=== PATIENT | male | born 1955 | race African-American/Black ===

== ENCOUNTER 2018-09-04 10:17 | Inpatient (IN) | payer OTHER ==
[~2018-09-04] VITALS: Ht 182.9 cm; Wt 81.6 kg
[2018-09-04] MEDS ORDERED: SODIUM CHLORIDE 0.9% 1,000 ML IV ONE (10:50)
[2018-09-04] MEDS ORDERED: ONDANSETRON HCL 4MG/2ML INJ IV STA (10:50)
[2018-09-04] MEDS ORDERED: NITROGLYCERIN OINT 1GM/INCH UDPKT TD ONE (11:00)
[2018-09-04] MEDS ORDERED: ASPIRIN 325MG EC TABLET PO ONE (11:00)
[2018-09-04] MEDS ORDERED: MORPHINE SULFATE 10 MG/ML CPJ IV ONE (11:00)
[2018-09-04 11:18] LABS: BASOPHILS % 0.7 % (0.0-2.0); EOSINOPHILS % 2.3 % (0.0-5.0); HEMATOCRIT. 33.5 % (42.0-52.0); HEMOGLOBIN. 11.2 g/dL (14.0-18.0); LYMPHOCYTES % 17.2 % (20.0-50.0); MEAN CORPUSCULAR HEMOGLOBIN 35.1 pg (28.0-32.0); MEAN CORPUSCULAR VOLUME 104.9 fL (80.0-94.0); MEAN PLATELET VOLUME 7.5 fl (7.4-10.4); NEUTROPHILS % 69.8 % (40.0-76.0); PLATELET 239 x1000/uL (130-400); RED BLOOD CELL COUNT 3.19 mill/uL (4.7-6.1); RED CELL DISTRIBUTION WIDTH 14.4 % (11.6-14.6)
[2018-09-04 11:26] LABS: CHLORIDE 99 mEq/L (98-107); INR 1.3; PROTHROMBIN TIME 12.9 sec (9.1-11.1)
[2018-09-04] MEDS ORDERED: POTASSIUM CHLORIDE 20MEQ TABLET SR PO ONE (11:30)
[2018-09-04 11:32] LABS: ETHANOL BLOOD 23 mg/dL
[2018-09-04] MEDS ORDERED: SODIUM CHLORIDE 0.9% 1000ML BAG (SEPSIS BOLUS) IV ONE (11:45)
[2018-09-04] MEDS ORDERED: BISACODYL 10MG SUPP PR PRN (12:30)
[2018-09-04] MEDS ORDERED: ONDANSETRON HCL 4MG/2ML INJ IV PRN (12:30)
[2018-09-04] MEDS ORDERED: PIPERACILLIN/TAZ 3.375G PREMIX 50 ML IV ONE (13:15)
[2018-09-04] MEDS ORDERED: VANCOMYCIN 1 G PREMIX 200 ML IV ONE (13:15)
[2018-09-04 13:48] LABS: HEPATITIS B SURFACE ANTIGEN NEGATIVE
[2018-09-04 14:18] LABS: HEPATITIS A AB IGM NEGATIVE (NEGATIVE)
[2018-09-04 14:31] LABS: CLARITY URINE CLEAR (CLEAR); COLOR URINE YELLOW (YELLOW); KETONES URINE NEGATIVE (NEGATIVE); LEUKOCYTE ESTERASE URINE NEGATIVE (NEGATIVE); NITRITE URINE NEGATIVE (NEGATIVE); OCCULT BLOOD URINE NEGATIVE (NEGATIVE); PROTEIN URINE NEGATIVE (NEGATIVE); SPECIFIC GRAVITY URINE 1.027 (1.005-1.030)
[2018-09-04 15:41] VITALS: BP 100/60
[2018-09-04 15:44] VITALS: BP 100/60
[2018-09-04] MEDS ORDERED: ATOR40TA70 MT (15:58)
[2018-09-04] MEDS ORDERED: AMLO10TA80 MT (16:00)
[2018-09-04] MEDS ORDERED: LOSA50TA20 MT (16:00)
[2018-09-04] MEDS ORDERED: METF-816 MT (16:00)
[2018-09-04] MEDS ORDERED: HYDROMORPHONE HCL/PF 2MG/ML CPJ IV PRN (16:00)
[2018-09-04] MEDS ORDERED: DEXTROSE 50% WATER 50ML SYRINGE IV PRN (16:00)
[2018-09-04] MEDS: INSULIN LISPRO 100 UNITS/ML SUBCUT SCH ×2 (16:39→21:00)
[2018-09-04] MEDS: BLOOD SUGAR DIAGNOSTIC STRIP TEST SCH ×2 (16:39→21:58)
[2018-09-04] MEDS: SODIUM CHLORIDE 0.45% 1,000 ML IV SCH (16:40)
[2018-09-04] MEDS ORDERED: PNEUMOCOCCAL 23-VAL P-SAC VAC 0.5 ML IM ONE (18:00)
[2018-09-04] MEDS ORDERED: IOHEXOL-350 100 ML BOTTLE ONE (18:38)
[2018-09-05] VITALS: BP 104/68
[2018-09-05 04:00] VITALS: BP 105/62
[2018-09-05] MEDS: SODIUM CHLORIDE 0.45% 1,000 ML IV SCH (05:32)
[2018-09-05] MEDS: INSULIN LISPRO 100 UNITS/ML SUBCUT SCH ×2 (06:13→12:15)
[2018-09-05] MEDS: BLOOD SUGAR DIAGNOSTIC STRIP TEST SCH ×2 (06:13→12:40)
[2018-09-05 07:27] LABS: HEMATOCRIT. 27.9 % (42.0-52.0); HEMOGLOBIN. 9.5 g/dL (14.0-18.0); MEAN CORPUSCULAR HEMOGLOBIN 35.9 pg (28.0-32.0); MEAN PLATELET VOLUME 7.9 fl (7.4-10.4); PLATELET 207 x1000/uL (130-400); RED BLOOD CELL COUNT 2.66 mill/uL (4.7-6.1); RED CELL DISTRIBUTION WIDTH 14.1 % (11.6-14.6)
[2018-09-05 07:43] LABS: CHLORIDE 106 mEq/L (98-107)
[2018-09-05 08:00] VITALS: BP 109/70
[2018-09-05 12:00] VITALS: BP 110/77
[2018-09-05] MEDS ORDERED: OMEPRAZOLE 20MG CAPSULE EXTENDED RELEASE PO SCH (13:15)
[2018-09-05 16:00] VITALS: BP 105/76
[2018-09-05 16:28] VITALS: BP 105/76
[2018-09-05 17:51] LABS: TOTAL IRON BINDING CAPACITY 198 ug/dL (250-450)
[2018-09-05 19:01] LABS: VITAMIN B12 SERUM >2000 pg/mL pg/mL (211-911)
[2018-09-05 19:33] LABS: FERRITIN 5832 ng/mL (22-322)
[2018-09-06 14:04] LABS: PLATELET ESTIMATE NORMAL
== END 2018-09-05 17:15 | disposition home or self-care (01) | DRG 392 ==
LOC: ER 12:07 → 5WST 12:26 → EDBEDREQ 12:34 → EDBEDREQTM 12:34 → ENRESERV 13:49
PROVIDERS: ADMIT Internal Medicine; ATTEND Internal Medicine
DX: K29.20 Alcoholic gastritis without bleeding (principal); E87.1 Hypo-osmolality and hyponatremia; K52.9 Noninfective gastroenteritis and colitis, unspecified; D64.9 Anemia, unspecified; E87.6 Hypokalemia; K70.30 Alcoholic cirrhosis of liver without ascites; I10 Essential (primary) hypertension; E11.9 Type 2 diabetes mellitus without complications; E78.5 Hyperlipidemia, unspecified; F10.10 Alcohol abuse, uncomplicated; K21.9 Gastro-esophageal reflux disease without esophagitis; Z79.82 Long term (current) use of aspirin; K59.00 Constipation, unspecified; Z86.711 Personal history of pulmonary embolism; Z79.84 Long term (current) use of oral hypoglycemic drugs; Z79.899 Other long term (current) drug therapy
CPT/HCPCS: 36415; 71045; 71275; 74177; 76705; 78227; 80307; 82607; 82728; 82746; 82962; 83540; 83550; 83605; 83880; 84484; 85379; 86705; 86709; 86803; 87340; 90732; 93005; 93970; 96361; 96365; 99291; A9537; G0482; J2405; J2543; J3370; J7030; Q9967

== ENCOUNTER 2022-03-26 08:53 | Inpatient (IN) | payer OTHER ==
[~2022-03-26] VITALS: Ht 185.4 cm; Wt 72.6 kg
[~2022-03-26 08:53] MED LIST: AMLO10TA80 MT; ATOR40TA70 MT; LOSA50TA41 MT; METF-874 MT
[2022-03-26] MEDS ORDERED: ONDANSETRON HCL 4MG/2ML INJ IV STA (08:56)
[2022-03-26] MEDS ORDERED: SODIUM CHLORIDE 0.9% 1,000 ML IV ONE (09:00)
[2022-03-26] MEDS ORDERED: MAGNESIUM/ALUMINUM HYDROXIDE/SIMETHICONE 30ML UDC PO ONE (09:00)
[2022-03-26 09:31] LABS: BASOPHILS % 0.9 % (0.0-2.0); HEMATOCRIT. 38.4 % (42.0-52.0); LYMPHOCYTES % 14.3 % (20.0-50.0); MEAN CORPUSCULAR HEMOGLOBIN 36.2 pg (28.0-32.0); MEAN CORPUSCULAR VOLUME 106.5 fL (80.0-94.0); MEAN PLATELET VOLUME 8.1 fl (7.4-10.4); MONOCYTES % 12.4 % (2.0-8.0); NEUTROPHILS % 72.4 % (40.0-76.0); PLATELET 227 x1000/uL (130-400); RED BLOOD CELL COUNT 3.61 mill/uL (4.7-6.1); RED CELL DISTRIBUTION WIDTH 16.7 % (11.6-14.6)
[2022-03-26 09:45] LABS: CHLORIDE 96 mEq/L (98-107)
[2022-03-26 09:53] LABS: ETHANOL BLOOD < 10 mg/dL
[2022-03-26] MEDS ORDERED: MECLIZINE 25MG TABLET PO PRN (14:00)
[2022-03-26 17:32] VITALS: BP 147/90
[2022-03-26 20:00] VITALS: BP 142/90
[2022-03-26] MEDS: ACETAMINOPHEN 325MG TABLET PO PRN (20:42)
[2022-03-26] MEDS: ONDANSETRON HCL 4MG/2ML INJ IV PRN (20:42)
[2022-03-26] MEDS ORDERED: DEXTROSE 50% WATER 50ML SYRINGE IV PRN (22:00)
[2022-03-26] MEDS ORDERED: NALOXONE HCL 0.4MG/ML VIAL IV PRN (22:30)
[2022-03-26] MEDS: DEXT 5%/0.45% NACL KCL 20MEQ/L 1,000 ML IV SCH (23:43)
[2022-03-26] MEDS: PANTOPRAZOLE SODIUM 40 MG/VIAL IV SCH (23:43)
[2022-03-27] VITALS: BP 155/97
[2022-03-27] MEDS: MORPHINE SULFATE 2 MG/ML CPJ (NOT FOR IM USE) IV PRN ×2 (00:10→08:20)
[2022-03-27 00:54] LABS: BASOPHILS % 0.5 % (0.0-2.0); HEMATOCRIT. 35.4 % (42.0-52.0); HEMOGLOBIN. 11.7 g/dL (14.0-18.0); LYMPHOCYTES % 32.9 % (20.0-50.0); MEAN CORPUSCULAR HEMOGLOBIN 35.6 pg (28.0-32.0); MEAN CORPUSCULAR VOLUME 107.5 fL (80.0-94.0); MEAN PLATELET VOLUME 8.5 fl (7.4-10.4); MONOCYTES % 12.9 % (2.0-8.0); NEUTROPHILS % 53.7 % (40.0-76.0); PLATELET 188 x1000/uL (130-400); RED BLOOD CELL COUNT 3.29 mill/uL (4.7-6.1); RED CELL DISTRIBUTION WIDTH 16.4 % (11.6-14.6)
[2022-03-27 01:10] LABS: CHLORIDE 96 mEq/L (98-107)
[2022-03-27 04:00] VITALS: BP 138/90
[2022-03-27] MEDS: BLOOD SUGAR DIAGNOSTIC STRIP TEST SCH ×4 (06:47→21:00)
[2022-03-27] MEDS: INSULIN LISPRO 100 UNITS/ML SUBCUT SCH ×4 (07:33→21:00)
[2022-03-27 07:45] LABS: VITAMIN B12 SERUM 928 pg/mL (211-911)
[2022-03-27 08:00] VITALS: BP 135/84
[2022-03-27] MEDS: AMLODIPINE 10MG TABLET PO SCH (08:18)
[2022-03-27] MEDS: PANTOPRAZOLE SODIUM 40 MG/VIAL IV SCH (08:18)
[2022-03-27] MEDS: ONDANSETRON HCL 4MG/2ML INJ IV PRN (08:19)
[2022-03-27 12:00] VITALS: BP 128/76
[2022-03-27] MEDS: DEXT 5%/0.45% NACL KCL 20MEQ/L 1,000 ML IV SCH (12:42)
[2022-03-27 15:46] VITALS: BP 120/78
[2022-03-27 17:49] LABS: CLARITY URINE CLEAR (CLEAR); COLOR URINE DARK YELLOW (YELLOW); KETONES URINE 1+ (NEGATIVE); LEUKOCYTE ESTERASE URINE TRACE (NEGATIVE); NITRITE URINE NEGATIVE (NEGATIVE); OCCULT BLOOD URINE NEGATIVE (NEGATIVE); PH URINE 6.5 (4.5-8.0); PROTEIN URINE NEGATIVE (NEGATIVE); SPECIFIC GRAVITY URINE 1.015 (1.005-1.030)
[2022-03-27] MEDS: HYDROXYZINE 10 MG TABLET PO SCH (21:23)
[2022-03-27] MEDS: HYDROCODONE/ACETAMINOPHEN 5/325MG TABLET PO PRN (21:25)
[2022-03-28] MEDS: DEXT 5%/0.45% NACL KCL 20MEQ/L 1,000 ML IV SCH ×2 (00:33→13:18)
[2022-03-28] MEDS: HYDROCODONE/ACETAMINOPHEN 5/325MG TABLET PO PRN ×4 (02:25→17:37)
[2022-03-28] MEDS: BLOOD SUGAR DIAGNOSTIC STRIP TEST SCH ×4 (06:48→21:22)
[2022-03-28] MEDS: INSULIN LISPRO 100 UNITS/ML SUBCUT SCH ×4 (07:50→21:22)
[2022-03-28 08:00] VITALS: BP 123/79
[2022-03-28 09:06] LABS: *AMPHETAMINES SCREEN URINE NEGATIVE (NEGATIVE); *BARBITURATES SCREEN URINE NEGATIVE (NEGATIVE); *BENZODIAZEPINES SCREEN URINE NEGATIVE (NEGATIVE); *COCAINE SCREEN URINE NEGATIVE (NEGATIVE); CANNABINOID URINE SCREEN PRESUMTIVE POSITIVE (NEGATIVE); METHADONE URINE SCREEN NEGATIVE (NEGATIVE); OPIATES URINE SCREEN PRESUMTIVE POSITIVE (NEGATIVE); PHENCYCLIDINE URINE SCREEN NEGATIVE (NEGATIVE)
[2022-03-28] MEDS: PANTOPRAZOLE SODIUM 40 MG/VIAL IV SCH (10:11)
[2022-03-28] MEDS: AMLODIPINE 10MG TABLET PO SCH (10:11)
[2022-03-28 12:00] VITALS: BP 118/72
[2022-03-28 16:00] VITALS: BP 135/84
[2022-03-28 20:00] VITALS: BP 124/79
[2022-03-28] MEDS: HYDROXYZINE 10 MG TABLET PO SCH (21:22)
[2022-03-29 01:30] VITALS: BP 137/86
[2022-03-29] MEDS: DEXT 5%/0.45% NACL KCL 20MEQ/L 1,000 ML IV SCH ×2 (01:40→14:00)
[2022-03-29] MEDS: HYDROCODONE/ACETAMINOPHEN 5/325MG TABLET PO PRN ×3 (01:45→20:10)
[2022-03-29 05:00] VITALS: BP 133/87
[2022-03-29] MEDS: BLOOD SUGAR DIAGNOSTIC STRIP TEST SCH ×4 (06:00→21:00)
[2022-03-29] MEDS: INSULIN LISPRO 100 UNITS/ML SUBCUT SCH ×4 (06:01→21:00)
[2022-03-29 08:00] VITALS: BP 119/79
[2022-03-29] MEDS: AMLODIPINE 10MG TABLET PO SCH (08:37)
[2022-03-29] MEDS: PANTOPRAZOLE SODIUM 40 MG/VIAL IV SCH (08:37)
[2022-03-29] MEDS ORDERED: IOHEXOL-300 100 ML BOTTLE ONE (11:01)
[2022-03-29 12:00] VITALS: BP 124/75
[2022-03-29 12:30] LABS: CHLORIDE 100 mEq/L (98-107)
[2022-03-29] MEDS: LEVOFLOXACIN 500MG TABLET PO SCH (13:24)
[2022-03-29 16:00] VITALS: BP 114/79
[2022-03-29 20:00] VITALS: BP 127/103
[2022-03-29] MEDS: HYDROXYZINE 10 MG TABLET PO SCH (20:10)
[2022-03-29] MEDS: ONDANSETRON HCL 4MG/2ML INJ IV PRN (20:18)
[2022-03-30] VITALS: BP 121/76
[2022-03-30] MEDS: DEXT 5%/0.45% NACL KCL 20MEQ/L 1,000 ML IV SCH (02:30)
[2022-03-30 04:00] VITALS: BP 113/81
[2022-03-30] MEDS: ONDANSETRON HCL 4MG/2ML INJ IV PRN (06:13)
[2022-03-30] MEDS: HYDROCODONE/ACETAMINOPHEN 5/325MG TABLET PO PRN (06:13)
[2022-03-30] MEDS: BLOOD SUGAR DIAGNOSTIC STRIP TEST SCH ×2 (07:32→13:05)
[2022-03-30] MEDS: INSULIN LISPRO 100 UNITS/ML SUBCUT SCH ×2 (07:33→12:50)
[2022-03-30 08:00] VITALS: BP 120/82
[2022-03-30] MEDS: AMLODIPINE 10MG TABLET PO SCH (08:48)
[2022-03-30] MEDS: ACETAMINOPHEN 325MG TABLET PO PRN (08:49)
[2022-03-30] MEDS: PANTOPRAZOLE SODIUM 40 MG/VIAL IV SCH (08:49)
[2022-03-30] MEDS: LEVOFLOXACIN 500MG TABLET PO SCH (11:11)
[2022-03-30 15:20] VITALS: BP 115/67
[2022-03-30 16:00] VITALS: BP 115/67
[2022-03-31] MEDS ORDERED: FAMOTIDINE 20MG/2ML VIAL IV SCH (09:00)
== END 2022-03-30 16:42 | disposition home or self-care (01) | DRG 74 ==
LOC: ER 09:14 → 6EST 12:37 → ENRESERV 14:08
PROVIDERS: ADMIT Internal Medicine; ATTEND Internal Medicine
DX: G90.8 Other disorders of autonomic nervous system (principal); E87.1 Hypo-osmolality and hyponatremia; I16.0 Hypertensive urgency; E11.51 Type 2 diabetes mellitus with diabetic peripheral angiopathy without gangrene; D53.9 Nutritional anemia, unspecified; I10 Essential (primary) hypertension; K57.30 Diverticulosis of large intestine without perforation or abscess without bleeding; K76.0 Fatty (change of) liver, not elsewhere classified; E87.8 Other disorders of electrolyte and fluid balance, not elsewhere classified; E78.00 Pure hypercholesterolemia, unspecified; R20.2 Paresthesia of skin; R10.9 Unspecified abdominal pain; R11.2 Nausea with vomiting, unspecified; N32.89 Other specified disorders of bladder; R63.4 Abnormal weight loss; F17.290 Nicotine dependence, other tobacco product, uncomplicated; Z68.21 Body mass index [BMI] 21.0-21.9, adult; Z79.899 Other long term (current) drug therapy; Z86.718 Personal history of other venous thrombosis and embolism; Z86.711 Personal history of pulmonary embolism
CPT/HCPCS: 36415; 70551; 71045; 74177; 80048; 80053; 80076; 80305; 80320; 81003; 82533; 82607; 82962; 83036; 83880; 84146; 84443; 84484; 85025; 93005; 97116; 97161; 97162; 97530; 99285; C9113; J1815; J2270; J2405; J7030; Q9967; G0480

== ENCOUNTER 2022-05-11 07:47 | Inpatient (IN) | payer BC, MEDICARE, OTHER ==
[~2022-05-11] VITALS: Ht 177.8 cm; Wt 73.1 kg
[~2022-05-11 07:47] MED LIST changes: -LOSA50TA41 MT; +LOSA50TA41 PO
[2022-05-11] MEDS ORDERED: KETOROLAC 30MG/ML VIAL IV STA (09:08)
[2022-05-11] MEDS ORDERED: SODIUM CHLORIDE 0.9% 1,000 ML IV ONE (09:15)
[2022-05-11 10:46] LABS: BASOPHILS % 0.6 % (0.0-2.0); EOSINOPHILS % 1.1 % (0.0-5.0); HEMATOCRIT. 36.5 % (42.0-52.0); LYMPHOCYTES % 34.9 % (20.0-50.0); MEAN CORPUSCULAR HEMOGLOBIN 35.6 pg (28.0-32.0); MEAN CORPUSCULAR VOLUME 108.3 fL (80.0-94.0); MEAN PLATELET VOLUME 7.6 fl (7.4-10.4); MONOCYTES % 11.5 % (2.0-8.0); NEUTROPHILS % 51.9 % (40.0-76.0); PLATELET 353 x1000/uL (130-400); RED BLOOD CELL COUNT 3.37 mill/uL (4.7-6.1)
[2022-05-11 10:50] LABS: CHLORIDE 106 mEq/L (98-107)
[2022-05-11 12:52] LABS: CLARITY URINE CLEAR (CLEAR); COLOR URINE YELLOW (YELLOW); KETONES URINE TRACE (NEGATIVE); LEUKOCYTE ESTERASE URINE NEGATIVE (NEGATIVE); NITRITE URINE NEGATIVE (NEGATIVE); OCCULT BLOOD URINE NEGATIVE (NEGATIVE); PH URINE 5.5 (4.5-8.0); PROTEIN URINE NEGATIVE (NEGATIVE); SPECIFIC GRAVITY URINE 1.012 (1.005-1.030); UROBILINOGEN URINE 0.2 E.U./dL (0.2-1.0)
[2022-05-11] MEDS ORDERED: ACETAMINOPHEN 325MG TABLET PO PRN ×2 (15:00)
[2022-05-11] MEDS ORDERED: GUAIFENESIN 200MG/10ML SUGAR FREE UDC PO PRN (15:00)
[2022-05-11] MEDS ORDERED: MAGNESIUM/ALUMINUM HYDROXIDE/SIMETHICONE 30ML UDC PO PRN (15:00)
[2022-05-11] MEDS ORDERED: DOCUSATE SODIUM 100MG CAPSULE PO PRN (15:00)
[2022-05-11] MEDS ORDERED: ENOXAPARIN 40MG/0.4ML SYR SUBCUT SCH (15:00)
[2022-05-11] MEDS ORDERED: IPRATROPIUM/ALBUTEROL 0.5-3(2.5)MG/3ML NEB NEB PRN (15:00)
[2022-05-11] MEDS ORDERED: ONDANSETRON HCL 4MG/2ML INJ IV PRN (15:00)
[2022-05-11] MEDS ORDERED: NITROGLYCERIN 0.4MG TABLET SL SL PRN (15:00)
[2022-05-11] MEDS ORDERED: DEXTROSE 50% WATER 50ML SYRINGE IV PRN (15:15)
[2022-05-11] MEDS: KETOROLAC 15MG/ML VIAL IV PRN (15:43)
[2022-05-11 15:55] LABS: T4 FREE 0.97 ng/dL (0.76-1.46)
[2022-05-11 16:44] LABS: CORTISOL 11.9 ucg/dL
[2022-05-11 16:46] LABS: FOLIC ACID (FOLATE) SERUM 3.6 ng/mL (>5.38)
[2022-05-11] MEDS ORDERED: ASPI-1497 PO (17:48)
[2022-05-11] MEDS ORDERED: GABA-532 PO (17:50)
[2022-05-11] MEDS: BLOOD SUGAR DIAGNOSTIC STRIP TEST SCH ×2 (18:00→20:07)
[2022-05-11 18:23] VITALS: BP 148/101
[2022-05-11 20:00] VITALS: BP 147/81
[2022-05-11] MEDS ORDERED: FOLIC ACID 1 MG, THIAMINE HCL 100 MG, MVI, ADULT NO.1 10 ML in DEXTROSE 5% WATER 1,000 ML IV NR ×4 (20:00)
[2022-05-11] MEDS: INSULIN LISPRO 100 UNITS/ML SUBCUT SCH (20:07)
[2022-05-11] MEDS: FAMOTIDINE 20MG TABLET PO SCH (20:23)
[2022-05-11] MEDS: ATORVASTATIN CALCIUM 40MG TABLET PO SCH (20:24)
[2022-05-11] MEDS ORDERED: ZOLPIDEM TARTRATE 5MG TABLET PO PRN (21:00)
[2022-05-12] VITALS: BP 145/83
[2022-05-12 00:45] LABS: CREATINE KINASE MB FRACTION 1.5 ng/mL (0.5-3.6)
[2022-05-12] MEDS: KETOROLAC 15MG/ML VIAL IV PRN ×3 (02:59→22:07)
[2022-05-12 04:00] VITALS: BP 167/100
[2022-05-12] MEDS: CLONIDINE 0.1MG TABLET PO PRN (04:16)
[2022-05-12] MEDS: BLOOD SUGAR DIAGNOSTIC STRIP TEST SCH ×4 (06:37→21:00)
[2022-05-12] MEDS: INSULIN LISPRO 100 UNITS/ML SUBCUT SCH ×4 (06:37→21:00)
[2022-05-12 07:03] LABS: BASOPHILS % 0.6 % (0.0-2.0); EOSINOPHILS % 1.1 % (0.0-5.0); HEMATOCRIT. 32.7 % (42.0-52.0); HEMOGLOBIN. 11.2 g/dL (14.0-18.0); LYMPHOCYTES % 23.6 % (20.0-50.0); MEAN CORPUSCULAR VOLUME 108.5 fL (80.0-94.0); MONOCYTES % 14.5 % (2.0-8.0); NEUTROPHILS % 60.2 % (40.0-76.0); PLATELET 292 x1000/uL (130-400); RED BLOOD CELL COUNT 3.02 mill/uL (4.7-6.1)
[2022-05-12 07:03] LABS: *AMPHETAMINES SCREEN URINE NEGATIVE (NEGATIVE); *BARBITURATES SCREEN URINE NEGATIVE (NEGATIVE); *BENZODIAZEPINES SCREEN URINE NEGATIVE (NEGATIVE); *COCAINE SCREEN URINE NEGATIVE (NEGATIVE); CANNABINOID URINE SCREEN PRESUMTIVE POSITIVE (NEGATIVE); METHADONE URINE SCREEN NEGATIVE (NEGATIVE); OPIATES URINE SCREEN NEGATIVE (NEGATIVE); PHENCYCLIDINE URINE SCREEN NEGATIVE (NEGATIVE)
[2022-05-12 07:25] LABS: CHLORIDE 102 mEq/L (98-107)
[2022-05-12 07:43] LABS: PHOSPHORUS 2.4 mg/dL (2.5-4.9)
[2022-05-12 07:46] LABS: CREATINE KINASE MB FRACTION 1.7 ng/mL (0.5-3.6)
[2022-05-12 08:00] VITALS: BP 124/88
[2022-05-12] MEDS: LOSARTAN POTASSIUM 50 MG TABLET PO SCH (08:43)
[2022-05-12] MEDS: ASPIRIN 325MG EC TABLET PO SCH (08:43)
[2022-05-12] MEDS: FAMOTIDINE 20MG TABLET PO SCH ×2 (08:43→21:33)
[2022-05-12] MEDS ORDERED: APIXABAN 5 MG TABLET PO SCH (09:00)
[2022-05-12 12:00] VITALS: BP 128/80
[2022-05-12] MEDS ORDERED: APIXABAN 5 MG TABLET PO NR (14:00)
[2022-05-12 16:00] VITALS: BP 122/79
[2022-05-12] MEDS ORDERED: AMLO10TA4 PO (18:02)
[2022-05-12] MEDS ORDERED: METF-416 PO (18:02)
[2022-05-12] MEDS ORDERED: ATOR20TA65 PO (18:02)
[2022-05-12] MEDS ORDERED: DICL100G31 TP (18:02)
[2022-05-12] MEDS ORDERED: LOSA100T32 PO (18:02)
[2022-05-12 20:00] VITALS: BP 134/86
[2022-05-12] MEDS: APIXABAN 5 MG TABLET PO SCH (21:33)
[2022-05-12] MEDS: ATORVASTATIN CALCIUM 40MG TABLET PO SCH (21:33)
[2022-05-13] VITALS: BP 139/85
[2022-05-13 04:00] VITALS: BP 133/81
[2022-05-13] MEDS: INSULIN LISPRO 100 UNITS/ML SUBCUT SCH ×4 (06:10→20:50)
[2022-05-13] MEDS: BLOOD SUGAR DIAGNOSTIC STRIP TEST SCH ×4 (06:10→20:49)
[2022-05-13 08:00] VITALS: BP 128/78
[2022-05-13] MEDS: ASPIRIN 325MG EC TABLET PO SCH (09:58)
[2022-05-13] MEDS: FAMOTIDINE 20MG TABLET PO SCH ×2 (09:59→20:56)
[2022-05-13] MEDS: LOSARTAN POTASSIUM 50 MG TABLET PO SCH (09:59)
[2022-05-13] MEDS: APIXABAN 5 MG TABLET PO SCH ×2 (09:59→20:56)
[2022-05-13] MEDS: KETOROLAC 15MG/ML VIAL IV PRN ×2 (10:03→17:54)
[2022-05-13 12:00] VITALS: BP 125/80
[2022-05-13 12:44] LABS: HEMATOCRIT 32.8 % (42.0-52.0); HEMOGLOBIN 10.9 g/dL (14.0-18.0); PLATELET 308 x1000/uL (130-400); RED BLOOD CELL COUNT 3.03 mill/uL (4.7-6.1); RED CELL DISTRIBUTION WIDTH 16.4 % (11.6-14.6)
[2022-05-13 12:48] LABS: CHLORIDE 104 mEq/L (98-107)
[2022-05-13] MEDS: MULTIVITAMINS,THER W-MINERALS TABLET PO SCH (13:14)
[2022-05-13] MEDS: THIAMINE HCL 100MG TABLET PO SCH (13:15)
[2022-05-13] MEDS: FOLIC ACID 1MG TABLET PO SCH (13:15)
[2022-05-13 16:00] VITALS: BP 155/68
[2022-05-13] MEDS: CLONIDINE 0.1MG TABLET PO PRN (18:14)
[2022-05-13 20:00] VITALS: BP 102/66
[2022-05-13] MEDS: ATORVASTATIN CALCIUM 40MG TABLET PO SCH (20:56)
[2022-05-14] VITALS: BP 109/69
[2022-05-14 04:00] VITALS: BP 104/65
[2022-05-14] MEDS: KETOROLAC 15MG/ML VIAL IV PRN ×2 (04:42→11:58)
[2022-05-14] MEDS: INSULIN LISPRO 100 UNITS/ML SUBCUT SCH ×2 (06:22→12:17)
[2022-05-14] MEDS: BLOOD SUGAR DIAGNOSTIC STRIP TEST SCH ×2 (06:22→11:55)
[2022-05-14 06:41] LABS: CHLORIDE 103 mEq/L (98-107); HEMATOCRIT 30.6 % (42.0-52.0); HEMOGLOBIN 10.2 g/dL (14.0-18.0); MEAN CORPUSCULAR HEMOGLOBIN 36.2 pg (28.0-32.0); MEAN CORPUSCULAR VOLUME 108.1 fL (80.0-94.0); PLATELET 296 x1000/uL (130-400); RED BLOOD CELL COUNT 2.83 mill/uL (4.7-6.1); RED CELL DISTRIBUTION WIDTH 16.7 % (11.6-14.6)
[2022-05-14 08:00] VITALS: BP 134/78
[2022-05-14] MEDS: LOSARTAN POTASSIUM 50 MG TABLET PO SCH (09:24)
[2022-05-14] MEDS: APIXABAN 5 MG TABLET PO SCH (09:24)
[2022-05-14] MEDS: FOLIC ACID 1MG TABLET PO SCH (09:24)
[2022-05-14] MEDS: MULTIVITAMINS,THER W-MINERALS TABLET PO SCH (09:24)
[2022-05-14] MEDS: FAMOTIDINE 20MG TABLET PO SCH (09:24)
[2022-05-14] MEDS: THIAMINE HCL 100MG TABLET PO SCH (09:24)
[2022-05-14] MEDS: ASPIRIN 325MG EC TABLET PO SCH (09:25)
[2022-05-14 12:00] VITALS: BP 142/95
[2022-05-14] MEDS ORDERED: THIA100T72 PO (14:03)
[2022-05-14] MEDS ORDERED: FOLI-43 PO (14:03)
[2022-05-14 14:44] VITALS: BP 142/95
[2022-05-14] MEDS ORDERED: FAMO20TA8 PO (15:09)
[2022-05-14] MEDS ORDERED: APIX5TAB PO (15:09)
[2022-05-19] MEDS ORDERED: APIXABAN 5 MG TABLET PO SCH (09:00)
== END 2022-05-14 16:30 | disposition home health service (06) | DRG 74 ==
LOC: ER 07:47 → EDBEDREQ 14:05 → EDBEDREQTM 14:05 → SUPCPDRO 14:49 → ENRESERV 16:08 → 8WST 17:21
PROVIDERS: ADMIT Internal Medicine; ATTEND Internal Medicine
DX: G90.8 Other disorders of autonomic nervous system (principal); I82.411 Acute embolism and thrombosis of right femoral vein; I82.431 Acute embolism and thrombosis of right popliteal vein; E11.42 Type 2 diabetes mellitus with diabetic polyneuropathy; E78.00 Pure hypercholesterolemia, unspecified; I10 Essential (primary) hypertension; E78.5 Hyperlipidemia, unspecified; D53.9 Nutritional anemia, unspecified; E23.7 Disorder of pituitary gland, unspecified; R29.6 Repeated falls; E53.8 Deficiency of other specified B group vitamins; F10.10 Alcohol abuse, uncomplicated; Z91.013 Allergy to seafood; Z86.711 Personal history of pulmonary embolism; Z79.899 Other long term (current) drug therapy; Z79.01 Long term (current) use of anticoagulants; Z79.82 Long term (current) use of aspirin
CPT/HCPCS: 36415; 71045; 80048; 80053; 80061; 80305; 80320; 81003; 82533; 82550; 82553; 82607; 82746; 82962; 83036; 83540; 83550; 83735; 84100; 84439; 84443; 84484; 85025; 85027; 93005; 93970; 97162; 99285; C1893; J1650; J1815; J1885; J3411; J3490; J7030; J7070; G0480